=== PATIENT | male | born 1975 | race Caucasian/White ===

== ENCOUNTER → 2018-06-14 | Outpatient (CLI) | payer OTHER ==
[~2018-06-14] MED LIST: CARISOPRODOL 3350 MG PO; HYDROCODON-ACE1 EAC8 PO; HYDROCODONE-AP1 EAC6 PO; MEDROLDOSEPACK PO; MOBIC7.5 MG PO; NORCO 5-325 TA1 EACH PO; ROBAXIN 750 MG750 M1 PO
== END ==
LOC: M.MRI 06-07 16:39 → M.ULTRA 12:56
DX: Z23 Encounter for immunization (principal); M47.896 Other spondylosis, lumbar region; M54.41 Lumbago with sciatica, right side; G89.29 Other chronic pain; G44.229 Chronic tension-type headache, not intractable

== ENCOUNTER → 2018-08-19 | Outpatient (CLI) | payer OTHER | LOC: M.CT 08:14 | DX: K55.1 Chronic vascular disorders of intestine (principal); I74.5 Embolism and thrombosis of iliac artery; I77.1 Stricture of artery; K57.30 Diverticulosis of large intestine without perforation or abscess without bleeding ==

== ENCOUNTER → 2018-08-25 | Outpatient (CLI) | payer OTHER ==
[~2018-08-25] VITALS: Ht 180.3 cm; Wt 97.5 kg
[~2018-08-25] MED LIST changes: +XANAX 0.25 MG0.25 MG PO
[2018-08-25 08:53] VITALS: BP 129/77
[2018-08-25 09:00] LABS: CALCIUM 9.1 mg/dL (8.5-10.1); CREATININE 0.9 mg/dL (0.6-1.3); POTASSIUM 4.1 mmol/L (3.5-5.1)
[2018-08-25 09:01] LABS: HEMATOCRIT 41.8 % (42.0-52.0); HEMOGLOBIN 14.8 gm/dL (14.0-18.0); MCH 32.3 pg (26.0-34.0); MCHC 35.3 g/dL (28.0-37.0); MCV 91.5 fL (80.0-100.0); MPV 10.5 fl. (7.2-11.1); RBC 4.57 mil/uL (4.50-6.00); RDW-CV 13.5 % (10.5-14.5); WBC 8.8 thou/uL (4.0-11.0)
[2018-08-25 09:03] LABS: APTT 29.9 Seconds (25.0-31.3); INR 0.9; PROTIME 9.7 Seconds (9.20-11.50)
[2018-08-25 09:05] LABS: ALBUMIN 3.5 g/dL (3.4-5.0); TOTAL BILIRUBIN 0.2 mg/dL (<0.1-1.0); TOTAL PROTEIN 7.1 g/dL (6.4-8.2)
== END ==
LOC: M.INT 07:45
PROVIDERS: Radiology Diagnostic Radiology
DX: I74.5 Embolism and thrombosis of iliac artery (principal); F17.210 Nicotine dependence, cigarettes, uncomplicated; Z88.8 Allergy status to other drugs, medicaments and biological substances; Z79.899 Other long term (current) drug therapy

== ENCOUNTER → 2018-11-03 | Outpatient (CLI) | payer OTHER | LOC: M.ULTRA 08-25 16:23 | DX: I74.5 Embolism and thrombosis of iliac artery (principal); I73.9 Peripheral vascular disease, unspecified ==

== ENCOUNTER → 2018-11-17 | Outpatient (CLI) | payer OTHER | LOC: M.MRI 11:30 | DX: M17.12 Unilateral primary osteoarthritis, left knee (principal); M25.762 Osteophyte, left knee; M71.22 Synovial cyst of popliteal space [Baker], left knee; Z68.29 Body mass index [BMI] 29.0-29.9, adult ==

== ENCOUNTER → 2019-05-17 | Outpatient (CLI) | payer OTHER ==
[2019-05-17 12:43] LABS: URINE BILIRUBIN NEGATIVE (Negative); URINE BLOOD NEGATIVE (Negative); URINE CLARITY CLEAR; URINE COLOR YELLOW; URINE GLUCOSE-RANDOM NEGATIVE (Negative); URINE KETONES NEGATIVE (Negative); URINE LEUKOCYTES-REFLEX NEGATIVE (Negative); URINE NITRITE-REFLEX NEGATIVE (Negative); URINE PROTEIN NEGATIVE (Negative); URINE UROBILINOGEN 0.2 E.U./dl (0.2-1.0)
[2019-05-17 12:44] LABS: ABSOLUTE BASOPHILS 0.1 thou/uL (0.0-0.2); ABSOLUTE EOSINOPHILS 0.2 thou/uL (0.0-0.7); ABSOLUTE LYMPHOCYTES 2.2 thou/uL (0.8-5.3); ABSOLUTE MONOCYTES 0.8 thou/uL (0.0-1.2); ABSOLUTE NEUTROPHILS 6.8 thou/uL (1.6-8.1); BASOPHILS 0.9 %; HEMATOCRIT 41.2 % (42.0-52.0); HEMOGLOBIN 14.3 gm/dL (14.0-18.0); LYMPHOCYTES 21.3 %; MCH 29.9 pg (26.0-34.0); MCHC 34.6 g/dL (28.0-37.0); MCV 86.4 fL (80.0-100.0); MONOCYTES 8.3 %; MPV 9.1 fl. (7.2-11.1); NUCLEATED RBCS 0 /100WBC; PLATELET COUNT* 223 thou/uL (150-400); POLYS 67.5 %; RBC 4.77 mil/uL (4.50-6.00); RDW-CV 13.7 % (10.5-14.5); WBC 10.1 thou/uL (4.0-11.0)
[2019-05-17 13:02] LABS: CALCIUM 9.5 mg/dL (8.5-10.1); POTASSIUM 4.5 mmol/L (3.5-5.1)
[2019-05-17 13:07] LABS: ALBUMIN 3.7 g/dL (3.4-5.0); TOTAL BILIRUBIN 0.2 mg/dL (<0.1-1.0); TOTAL PROTEIN 7.8 g/dL (6.4-8.2)
== END ==
LOC: M.CT 11:30
PROVIDERS: Internal Medicine
DX: Z00.00 Encounter for general adult medical examination without abnormal findings (principal); Z23 Encounter for immunization; N32.89 Other specified disorders of bladder; Z95.818 Presence of other cardiac implants and grafts

== ENCOUNTER → 2020-03-28 | Outpatient (CLI) | payer OTHER | LOC: M.CT 14:35 | PROVIDERS: ATTEND Registered Nurse Diabetes Educator | DX: R10.9 Unspecified abdominal pain (principal); R10.2 Pelvic and perineal pain ==

== ENCOUNTER 2020-04-09 21:45 | Emergency (ER) | payer OTHER ==
[~2020-04-09] VITALS: Ht 180.3 cm; Wt 97.5 kg
[2020-04-09] MEDS ORDERED: PLAVIX 75 MG TA75 MG PO (21:52)
[2020-04-09] MEDS ORDERED: CHANTIX1 MG PO (21:52)
[2020-04-09 22:21] LABS: MCH 29.5 pg (26.0-34.0); MCHC 34.4 g/dL (28.0-37.0); MCV 85.7 fL (80.0-100.0); MPV 8.5 fl. (7.2-11.1); NUCLEATED RBCS 0 /100WBC; PLATELET COUNT* 206 thou/uL (150-400); RBC 4.08 mil/uL (4.50-6.00); RDW-CV 14.7 % (10.5-14.5); WBC 10.3 thou/uL (4.0-11.0)
[2020-04-09 22:37] LABS: CALCIUM 8.9 mg/dL (8.5-10.1); POTASSIUM 3.8 mmol/L (3.5-5.1)
[2020-04-09 22:41] LABS: ALBUMIN 3.5 g/dL (3.4-5.0); TOTAL BILIRUBIN 0.3 mg/dL (<0.1-1.0); TOTAL PROTEIN 7.9 g/dL (6.4-8.2)
[2020-04-09 22:46] LABS: ABSOLUTE MONOCYTES 0.5 thou/uL (0.0-1.2); ABSOLUTE NEUTROPHILS 8.8 thou/uL (1.6-8.1)
[2020-04-09 22:47] LABS: PLATELET ESTIMATE ADEQUATE
[2020-04-10] MEDS ORDERED: NORCO 5-325 TA1 EAC2 PO (00:29)
[2020-04-10] MEDS ORDERED: ZOFRAN ODT4 MG SUBLING (00:29)
[2020-04-10 00:49] VITALS: BP 168/78
--- NOTE | 2020-04-10 09:39 | EKG ---
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
== END 2020-04-10 00:50 | disposition home or self-care (01) ==
LOC: M.ERS 21:45
PROVIDERS: Family Medicine
DX: R10.84 Generalized abdominal pain (principal); R11.2 Nausea with vomiting, unspecified; Z79.899 Other long term (current) drug therapy; Z88.8 Allergy status to other drugs, medicaments and biological substances

== ENCOUNTER → 2020-05-30 | Outpatient (CLI) | payer OTHER ==
[~2020-05-30] MED LIST changes: +CHANTIX1 MG PO; +NORCO 5-325 TA1 EAC2 PO; +PLAVIX 75 MG TA75 MG PO; +ZOFRAN ODT4 MG SUBLING
== END ==
LOC: M.CT 09:30
PROVIDERS: ATTEND Surgery Vascular Surgery
DX: I70.213 Atherosclerosis of native arteries of extremities with intermittent claudication, bilateral legs (principal); I77.1 Stricture of artery; K56.41 Fecal impaction; K57.30 Diverticulosis of large intestine without perforation or abscess without bleeding; M25.78 Osteophyte, vertebrae; Z95.1 Presence of aortocoronary bypass graft; Z98.890 Other specified postprocedural states; Z95.828 Presence of other vascular implants and grafts

== ENCOUNTER 2020-08-03 17:50 | Emergency (ER) | payer OTHER ==
[~2020-08-03] VITALS: Ht 180.3 cm; Wt 96.2 kg
[2020-08-03] MEDS ORDERED: [UNRECOGNIZED DRUG - REMARK] (18:07)
[2020-08-03] MEDS ORDERED: [UNRECOGNIZED DRUG - REMARK] (18:07)
[2020-08-03 18:36] LABS: ABSOLUTE BASOPHILS 0.1 thou/uL (0.0-0.2); ABSOLUTE EOSINOPHILS 0.2 thou/uL (0.0-0.7); ABSOLUTE MONOCYTES 0.7 thou/uL (0.0-1.2); ABSOLUTE NEUTROPHILS 4.8 thou/uL (1.6-8.1); BASOPHILS 0.7 %; EOSINOPHILS 2.1 %; HEMATOCRIT 33.3 % (42.0-52.0); HEMOGLOBIN 11.6 gm/dL (14.0-18.0); LYMPHOCYTES 25.9 %; MCH 31.3 pg (26.0-34.0); MCHC 34.9 g/dL (28.0-37.0); MCV 89.6 fL (80.0-100.0); MONOCYTES 9.5 %; MPV 8.8 fl. (7.2-11.1); NUCLEATED RBCS 0 /100WBC; PLATELET COUNT* 168 thou/uL (150-400); POLYS 61.8 %; RBC 3.71 mil/uL (4.50-6.00); RDW-CV 14.7 % (10.5-14.5); WBC 7.7 thou/uL (4.0-11.0)
[2020-08-03 18:47] LABS: CALCIUM 8.8 mg/dL (8.5-10.1); CREATININE 0.9 mg/dL (0.6-1.3); POTASSIUM 3.8 mmol/L (3.5-5.1)
[2020-08-03 18:49] LABS: APTT 27.5 Seconds (25.0-31.3); PROTIME 10.5 Seconds (9.20-11.50)
[2020-08-03 18:57] LABS: ALBUMIN 3.5 g/dL (3.4-5.0); TOTAL BILIRUBIN 0.3 mg/dL (<0.1-1.0); TOTAL PROTEIN 6.8 g/dL (6.4-8.2)
[2020-08-03 20:09] VITALS: BP 170/78
--- NOTE | 2020-08-04 14:40 | EKG ---
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 : 1975 Requested By: Juan Manuel Guzman Order Number: [id number] MD: Dallin Samaniego Measurements Intervals [place] Rate: 74 P: -10 [place]: 159 QRS: 25 QRSD: 89 T: 35 QT: 381 QTc: 423 Interpretive Statements Sinus rhythm Compared to ECG 04/09/2020 22:03:20 No significant changes Electronically Signed On 08-04-2020 14:40:29 BOGGER OPERATOR by Dallin Samaniego [email or web address] <ELECTRONICALLY SIGNED> By: Dallin Samaniego MD, [facility] 08/04/20 1440 182 182 Dallin Samaniego MD, [facility] /EPI
== END 2020-08-03 20:09 | disposition home or self-care (01) ==
LOC: M.ERS 17:50
PROVIDERS: Emergency Medicine Emergency Medical Services
DX: R60.0 Localized edema (principal); F17.210 Nicotine dependence, cigarettes, uncomplicated; Z88.8 Allergy status to other drugs, medicaments and biological substances